=== PATIENT | female | born 1960 | race Caucasian/White ===

== ENCOUNTER 2021-11-25 09:03 | Emergency (ER) | payer MEDICARE ==
[~2021-11-25] VITALS: Ht 157.5 cm; Wt 84.0 kg
[2021-11-25] MEDS ORDERED: KETOROLAC TROMETH 60MG/2ML VIAL IM ONE (10:15)
[2021-11-25] MEDS ORDERED: PRED20TA2 PO (10:54)
[2021-11-25] MEDS ORDERED: TRAM-297 PO (10:54)
[2021-11-25 11:04] VITALS: BP 150/89
== END 2021-11-25 11:08 | disposition home or self-care (01) ==
LOC: EDBD 09:03 → ER 09:03
DX: M51.36 Other intervertebral disc degeneration, lumbar region (principal); M54.16 Radiculopathy, lumbar region; E78.5 Hyperlipidemia, unspecified; Z79.899 Other long term (current) drug therapy; Z88.0 Allergy status to penicillin; Z88.1 Allergy status to other antibiotic agents
CPT/HCPCS: 72100; 73502; J1885

== ENCOUNTER 2022-05-15 19:49 | Emergency (ER) | payer MEDICARE, BC ==
[~2022-05-15] VITALS: Ht 157.5 cm; Wt 88.0 kg
[~2022-05-15 19:49] MED LIST: PRED20TA2 PO; TRAM-297 PO
[2022-05-15 21:17] VITALS: BP 117/60
[2022-05-16] MEDS ORDERED: AZITTAB PO (00:58)
[2022-05-16] MEDS ORDERED: ACET-1158 PO (00:58)
== END 2022-05-16 01:25 | disposition home or self-care (01) ==
LOC: ER 19:54
DX: J06.9 Acute upper respiratory infection, unspecified (principal); E78.5 Hyperlipidemia, unspecified; Z98.890 Other specified postprocedural states; Z20.822 Contact with and (suspected) exposure to COVID-19
CPT/HCPCS: 36415; 71046; 87426; 87804

== ENCOUNTER 2023-04-17 21:50 | Inpatient (IN) | payer MEDICARE, BC ==
[~2023-04-17] VITALS: Ht 157.5 cm; Wt 104.4 kg
[~2023-04-17 21:50] MED LIST changes: +ACET500T58 PO; +AZITTAB PO
[2023-04-17 22:50] LABS: Urine Epithelial Cast None Seen /hpf (<5)
[2023-04-17 22:59] LABS: Urine Bacteria MANY /hpf (None Seen); Urine Blood Negative /uL (Negative); Urine Clarity HAZY (Clear); Urine Color Colorless (Yellow); Urine Mucus FEW (None Seen); Urine Protein, UAD 1+ (Negative); Urine Specific Gravity 1.011 (1.001-1.035); Urine Urobilinogen Normal (Negative); Urine WBC 16 /hpf (0 - 5); Urine pH 5.5 (5.0-8.0)
[2023-04-17 23:16] LABS: Basophils # (auto) 0.1 10 ^3/uL (0-0.2); Basophils % (auto) 0.6 % (0.0-2.0); Eosinophils # (auto) 0.1 10 ^3/uL (0-0.8); Eosinophils % (auto) 0.5 % (0.0-7.0); Hemoglobin 14.6 g/dL (12.2-16.2); Lymphocytes # (auto) 2.3 10 ^3/uL (0.4-5.4); Lymphocytes % (auto) 20.7 % (10.0-50.0); Mean Corpuscular Hemoglobin 29.3 pg (28.0-32.0); Mean Corpuscular Hgb Conc. 32.4 g/dL (32.0-36.0); Mean Corpuscular Volume 90.3 fL (80.0-100.0); Monocytes # (auto) 1.2 10 ^3/uL (0-1.3); Monocytes % (auto) 10.8 % (0.0-12.0); Neutrophils # (auto) 7.6 10 ^3/uL (1.6-8.6); Neutrophils % (auto) 67.4 % (37.0-80.0); Red Blood Cells 4.98 10^6/uL (4.0-5.20); Red Cell Distribution Width 14.2 % (11.8-14.3); White Blood Cell 11.2 10^3/uL (4.4-10.8)
[2023-04-17 23:23] LABS: Chloride 106 mmol/L (98-107); Potassium 4.4 mmol/L (3.5-5.1); Sodium 137 mmol/L (136-145)
[2023-04-17 23:24] LABS: Anion Gap 7 (5-15); Calcium 9.9 mg/dL (8.7-10.4); Carbon Dioxide 24 mmol/L (20-30)
[2023-04-17 23:29] LABS: BUN/Creatinine Ratio 15.3 (10.0-20.0); Blood Urea Nitrogen 20 mg/dL (9-23); Glucose 124 mg/dL (74-106)
[2023-04-18] MEDS ORDERED: ONDANSETRON HCL 4 MG/2 ML VIAL IV PRN (01:00)
[2023-04-18] MEDS ORDERED: CIPROFLOXACIN 400MG/200ML 200 ML IV ONE ×2 (01:00)
[2023-04-18] MEDS ORDERED: ACETAMINOPHEN 325 MG TAB PO PRN (01:00)
[2023-04-18] MEDS ORDERED: HYDROcodone-ACET 5/325MG TAB PO PRN (01:00)
[2023-04-18] MEDS ORDERED: TEMAZEPAM 15 MG CAP PO PRN (01:00)
[2023-04-18 01:53] VITALS: PULSE 91; RESP 18; O2SAT 97
[2023-04-18] MEDS: CIPROFLOXACIN 400MG/200ML 200 ML IV SCH ×2 (01:53→10:34)
[2023-04-18] MEDS: hydroCHLOROthiazide 25 MG TAB PO SCH (10:18)
[2023-04-18] MEDS: LOSARTAN POTASSIUM 50 MG TAB PO SCH (10:19)
[2023-04-18] MEDS: MYCOPHENOLATE 500 MG TAB PO SCH ×2 (10:21→22:00)
[2023-04-18] MEDS ORDERED: MEROPENEM 1GM IVPB 50 ML IV ONE (17:15)
[2023-04-18] MEDS ORDERED: LORATADINE 10 MG TAB PO ONE (19:00)
[2023-04-18 19:50] VITALS: PULSE 83; RESP 18; O2SAT 94
[2023-04-18] MEDS: MEROPENEM 1GM IVPB 50 ML IV SCH (22:00)
[2023-04-18] MEDS: ATORVASTATIN 20 MG TAB PO SCH (23:23)
[2023-04-18 23:30] VITALS: BP 122/65; PULSE 89; RESP 18; TEMP 98.3; O2SAT 92
[2023-04-18] MEDS ORDERED: TACR1CAP4 PO (23:32)
[2023-04-18] MEDS ORDERED: GABA-1250 PO (23:32)
[2023-04-18] MEDS ORDERED: MYCO250C4 PO (23:32)
[2023-04-18] MEDS ORDERED: ASPI81CH59 PO (23:32)
[2023-04-18] MEDS ORDERED: PRE5T PO (23:32)
[2023-04-18] MEDS ORDERED: LOSA50TA30 PO (23:33)
[2023-04-18] MEDS ORDERED: TRAM50TA2 PO (23:40)
[2023-04-18] MEDS ORDERED: OFL50TS OT (23:40)
[2023-04-18] MEDS ORDERED: SIMV40TA18 PO (23:40)
[2023-04-18] MEDS ORDERED: ACYC1TAB2 PO (23:40)
[2023-04-18] MEDS ORDERED: ALLO100T PO (23:40)
[2023-04-19] MEDS: MEROPENEM 1GM IVPB 50 ML IV SCH ×3 (02:23→21:11)
[2023-04-19 06:01] LABS: Basophils # (auto) 0 10 ^3/uL (0-0.2); Basophils % (auto) 0.5 % (0.0-2.0); Eosinophils # (auto) 0.1 10 ^3/uL (0-0.8); Eosinophils % (auto) 0.7 % (0.0-7.0); Hematocrit 43.2 % (36.0-46.0); Lymphocytes # (auto) 2.1 10 ^3/uL (0.4-5.4); Lymphocytes % (auto) 21.7 % (10.0-50.0); Mean Corpuscular Hemoglobin 29.2 pg (28.0-32.0); Mean Corpuscular Hgb Conc. 32.4 g/dL (32.0-36.0); Mean Corpuscular Volume 90.3 fL (80.0-100.0); Monocytes % (auto) 10.6 % (0.0-12.0); Neutrophils # (auto) 6.4 10 ^3/uL (1.6-8.6); Neutrophils % (auto) 66.5 % (37.0-80.0); Nucleated Red Blood Cells % 0.1 %; Red Blood Cells 4.79 10^6/uL (4.0-5.20); White Blood Cell 9.6 10^3/uL (4.4-10.8)
[2023-04-19 06:12] LABS: Chloride 106 mmol/L (98-107); Potassium 4.5 mmol/L (3.5-5.1); Sodium 137 mmol/L (136-145)
[2023-04-19 06:13] LABS: Anion Gap 7 (5-15); Calcium 9.9 mg/dL (8.7-10.4); Carbon Dioxide 24 mmol/L (20-30)
[2023-04-19 06:18] LABS: BUN/Creatinine Ratio 18.7 (10.0-20.0); Blood Urea Nitrogen 20 mg/dL (9-23); Glucose 128 mg/dL (74-106)
[2023-04-19 08:42] VITALS: BP 124/71; PULSE 70; RESP 15; TEMP 98.3; O2SAT 95
[2023-04-19] MEDS: hydroCHLOROthiazide 25 MG TAB PO SCH (10:00)
[2023-04-19] MEDS: LOSARTAN POTASSIUM 50 MG TAB PO SCH (10:00)
[2023-04-19] MEDS: MYCOPHENOLATE 500 MG TAB PO SCH ×2 (10:11→21:11)
[2023-04-19] MEDS: SODIUM CHLORIDE 0.9% 1,000 ML IV SCH ×2 (10:15→21:12)
[2023-04-19 12:58] VITALS: BP 120/68; PULSE 74; RESP 15; TEMP 98.6; O2SAT 96
[2023-04-19] MEDS ORDERED: TACROLIMUS 1 MG CAP PO SCH ×2 (13:00)
[2023-04-19] MEDS: TETRAHYDROZOLINE HCL 0.05% OPTH(EYE)SOL EACHEYE PRN (14:57)
[2023-04-19 16:27] VITALS: BP 111/64; PULSE 90; RESP 14; TEMP 97.8; O2SAT 96
[2023-04-19] MEDS ORDERED: ARTIFICIAL TEARS 15ml EACHEYE PRN (19:00)
[2023-04-19] MEDS: TACROLIMUS 1 MG CAP PO SCH (21:11)
[2023-04-19] MEDS: ATORVASTATIN 20 MG TAB PO SCH (21:11)
[2023-04-19 23:14] VITALS: BP 118/66; PULSE 83; RESP 18; TEMP 98.6; O2SAT 97
[2023-04-20] MEDS: MEROPENEM 1GM IVPB 50 ML IV SCH ×2 (05:15→13:33)
[2023-04-20 05:31] VITALS: BP 141/74; PULSE 79; RESP 17; TEMP 98.7; O2SAT 94
[2023-04-20 07:07] LABS: Anion Gap 5 (5-15); Carbon Dioxide 25 mmol/L (20-30); Chloride 109 mmol/L (98-107); Potassium 4.2 mmol/L (3.5-5.1); Sodium 139 mmol/L (136-145)
[2023-04-20 07:08] LABS: Calcium 9.6 mg/dL (8.7-10.4)
[2023-04-20 07:13] LABS: BUN/Creatinine Ratio 20.4 (10.0-20.0); Blood Urea Nitrogen 20 mg/dL (9-23); Glucose 91 mg/dL (74-106)
[2023-04-20 07:58] LABS: Basophils # (auto) 0.1 10 ^3/uL (0-0.2); Basophils % (auto) 1.3 % (0.0-2.0); Eosinophils # (auto) 0.3 10 ^3/uL (0-0.8); Eosinophils % (auto) 2.8 % (0.0-7.0); Hematocrit 42.7 % (36.0-46.0); Hemoglobin 14.1 g/dL (12.2-16.2); Lymphocytes % (auto) 21.2 % (10.0-50.0); Mean Corpuscular Hgb Conc. 32.9 g/dL (32.0-36.0); Mean Corpuscular Volume 91.1 fL (80.0-100.0); Monocytes # (auto) 1.1 10 ^3/uL (0-1.3); Monocytes % (auto) 11.4 % (0.0-12.0); Neutrophils % (auto) 63.3 % (37.0-80.0); Nucleated Red Blood Cells % 2.1 %; Red Blood Cells 4.69 10^6/uL (4.0-5.20); Red Cell Distribution Width 14.2 % (11.8-14.3); White Blood Cell 9.4 10^3/uL (4.4-10.8)
[2023-04-20 09:00] VITALS: BP 128/65; PULSE 75; RESP 20; TEMP 97.6; O2SAT 97
[2023-04-20] MEDS ORDERED: SULF400T11 PO (09:54)
[2023-04-20] MEDS: LOSARTAN POTASSIUM 50 MG TAB PO SCH (10:00)
[2023-04-20] MEDS: hydroCHLOROthiazide 25 MG TAB PO SCH (10:00)
[2023-04-20] MEDS: TACROLIMUS 1 MG CAP PO SCH (10:07)
[2023-04-20] MEDS: SODIUM CHLORIDE 0.9% 1,000 ML IV SCH (10:08)
[2023-04-20] MEDS: MYCOPHENOLATE 500 MG TAB PO SCH (10:08)
[2023-04-20] MEDS: TETRAHYDROZOLINE HCL 0.05% OPTH(EYE)SOL EACHEYE PRN (10:09)
[2023-04-20 11:23] LABS: Platelet Estimate Adequate
[2023-04-20 13:00] VITALS: BP 127/73; PULSE 67; RESP 18; TEMP 98.2; O2SAT 97
== END 2023-04-20 17:20 | disposition home or self-care (01) | DRG 689 ==
LOC: ER 21:50 → OVERFLOW 04-18 01:07 → CENTRAL 04-18 21:26
PROVIDERS: ADMIT Internal Medicine Pulmonary Disease; ATTEND Internal Medicine Pulmonary Disease
DX: N39.0 Urinary tract infection, site not specified (principal); N17.0 Acute kidney failure with tubular necrosis; Z94.0 Kidney transplant status; I10 Essential (primary) hypertension; E78.5 Hyperlipidemia, unspecified; J40 Bronchitis, not specified as acute or chronic; Z88.0 Allergy status to penicillin
CPT/HCPCS: 36415; 71045; 80048; 81001; 84484; 85025; 87086; 93005; 93306; 96365; 96366; 96367; G0378; J2185; J7507; J7517